=== PATIENT | female | born 1960 | race Caucasian/White ===

== ENCOUNTER 2024-03-16 07:05 | Day surgery (SDC) | payer OTHER ==
[2024-03-09 15:33] VITALS: BMI 32.2
[2024-03-16] MEDS ORDERED: VANCOMYCIN 1,000 MG VIAL (RESTRICTED TO ID ONLY) ONE ×2 (09:33→10:55)
[2024-03-16] MEDS ORDERED: TRANEXAMIC ACID 1000 MG/10 ML VIAL ONE ×2 (09:33→10:55)
[2024-03-16] MEDS ORDERED: SUCCINYLCHOLINE CHLORIDE 200 MG/10 ML SYRINGE ONE (09:46)
[2024-03-16] MEDS ORDERED: PROPOFOL 20 ML ONE (09:46)
[2024-03-16] MEDS ORDERED: LIDOCAINE HCL/PF 2% SDV 5ML VIAL ONE (09:46)
[2024-03-16] MEDS ORDERED: MIDAZOLAM HCL 2 MG/2 ML SINGLE DOSE VIAL ONE (09:47)
[2024-03-16] MEDS ORDERED: DEXAMETHASONE SOD PHOSPHATE 4 MG/1 ML VIAL ONE ×2 (09:49→10:21)
[2024-03-16] MEDS ORDERED: BUPIVACAINE HCL/PF 0.5% (5 MG/ML) 30 ML VIAL IJ ONE (09:52)
[2024-03-16] MEDS ORDERED: ceFAZolin SODIUM 1 GM VIAL ONE (10:21)
[2024-03-16] MEDS ORDERED: ROCURONIUM BROMIDE 50 MG/5 ML SYRINGE ONE (11:01)
[2024-03-16] MEDS ORDERED: MAG HYDROX/AL HYDROX/SIMETH 30 ML UNIT-DOSE CUP PO PRN (13:50)
[2024-03-16] MEDS ORDERED: PROMETHAZINE HCL 25 MG/1 ML VIAL IVPB PRN (14:01)
[2024-03-16] MEDS: ACETAMINOPHEN 1000 MG/100 ML BAG IVPB ONE (14:11)
[2024-03-16] MEDS ORDERED: FENTANYL CITRATE/PF 50 MCG/ML VIAL ONE (14:20)
[2024-03-16] MEDS: ONDANSETRON 4 MG/2 ML VIAL IVPUSH PRN ×2 (14:25→18:28)
[2024-03-16] MEDS ORDERED: oxyCODONE HCL 5 MG TABLET ONE (14:52)
[2024-03-16] MEDS: oxyCODONE HCL 5 MG TABLET PO PRN ×2 (14:55→18:08)
[2024-03-16] MEDS: CEFAZOLIN 2 GM/D5W 2 GM/50 ML ML IVPB SCH (18:22)
[2024-03-16] MEDS: LACTATED RINGERS SOLUTION 1,000 ML IV SCH ×2 (18:24→21:36)
[2024-03-16] MEDS: KETOROLAC TROMETHAMINE 30 MG/1 ML VIAL IVPUSH SCH (20:15)
[2024-03-16] MEDS: ACETAMINOPHEN 500 MG TABLET (FP) PO SCH (20:15)
[2024-03-16] MEDS: oxyCODONE HCL 10 MG SUSTAINED ACTING TABLET PO SCH (21:12)
[2024-03-16] MEDS: ROSUVASTATIN CA 20 MG TABLET PO SCH (21:12)
[2024-03-16] MEDS: SENNOSIDES/DOCUSATE COMBO (SENNA PLUS) TABLET (UD) PO SCH (21:12)
[2024-03-16 21:25] VITALS: RESP 18
[2024-03-16] MEDS: VANCOMYCIN/WATER FOR INJ (PEG) 1 GM/200 ML BAG IVPB ONE (22:41)
[2024-03-17 08:16] LABS: HEMATOCRIT 29.8 % (32.4-45.2); HEMOGLOBIN 10.1 G/dL (10.7-15.3); MCH 29.4 pg (25.7-33.7); MEAN CELL VOLUME 86.5 fl (80-96); RBC 3.44 10^6/uL (3.60-5.2); RDW 15.3 % (11.6-15.6); WHITE BLOOD COUNT 7.7 10^3/uL (4.0-10.8)
[2024-03-17 08:49] LABS: CALCIUM 8.9 mg/dl (8.5-10.1); CREATININE 0.9 mg/dl (0.6-1.3); POTASSIUM 3.8 mmol/L (3.5-5.1)
[2024-03-17] MEDS: MULTIVITAMINS (DAILY MVI) TABLET (FP) PO SCH (09:45)
[2024-03-17] MEDS: MINOXIDIL 2.5 MG TABLET PO SCH (09:45)
[2024-03-17] MEDS: PANTOPRAZOLE 40 MG TABLET PO SCH (09:46)
[2024-03-17] MEDS: ASPIRIN 325 MG TABLET PO SCH (09:46)
[2024-03-17] MEDS: ONDANSETRON 4 MG/2 ML VIAL IVPUSH ONE (13:18)
[2024-03-17 15:53] VITALS: BP 123/62; PULSE 78; TEMP 98.1
[2024-03-22] MEDS ORDERED: SEMAGLUTIDE 1 MG/0.5 ML SQ SCH (10:00)
== END 2024-03-17 15:00 | disposition home or self-care (01) ==
LOC: FASUSAT 07:05 → SUATTDRO 07:05 → FM/S 15:24 → FASUSAT 03-17 15:00
PROC: 0LS30ZZ Reposition Right Upper Arm Tendon, Open Approach (ICD-10-PCS; 2024-03-16)
PROC: 0RRJ00Z Replacement of Right Shoulder Joint with Reverse Ball and Socket Synthetic Substitute, Open Approach (ICD-10-PCS; principal; 2024-03-16 10:55)
DX: S42.201A Unspecified fracture of upper end of right humerus, initial encounter for closed fracture (principal); M19.011 Primary osteoarthritis, right shoulder; M75.21 Bicipital tendinitis, right shoulder; X58.XXXA Exposure to other specified factors, initial encounter; Y93.9 Activity, unspecified; Y92.9 Unspecified place or not applicable
CPT/HCPCS: 36415; 73030-TC-RT-FY; 80048; 85027; 88304-TC; 88305-TC; 88311-TC; 88342-TC; 94760; 97010-GP; 97116-GP; 97162-GP; C1713; C1776; J0131